=== PATIENT | male | born 1985 | race Caucasian/White ===

== ENCOUNTER 2024-01-24 14:21 | Emergency (ER) | payer OTHER, MEDICAID ==
[~2024-01-24] VITALS: Ht 177.8 cm; Wt 67.2 kg
[2024-01-24 14:26] VITALS: BP 138/70; PULSE 90; RESP 16; TEMP 98.6; O2SAT 99
[2024-01-24 15:19] LABS: BILIRUBIN,URINE NEGATIVE (Neg); CLARITY,URINE CLEAR (Clear); COLOR,URINE YELLOW (Yellow); GLUCOSE, URINE NEGATIVE (Neg); KETONES,URINE NEGATIVE (Neg); LEUKOCYTE ESTERASE ,URINE NEGATIVE (Neg); NITRITES, URINE NEGATIVE (Neg); OCCULT BLOOD,URINE NEGATIVE (Neg); PROTEIN,URINE NEGATIVE (Neg); UROBILINOGEN,URINE 0.2 E.U/dL (0.2-1.0)
[2024-01-24 15:21] LABS: UA COLLECTION TYPE CLN CATCH MIDSTREAM
[2024-01-28 21:12] LABS: CHLAMYDIA TRACHOMATIS, NAA Negative (Negative)
== END 2024-01-24 17:05 | disposition home or self-care (01) ==
LOC: ER 14:22
DX: I86.1 Scrotal varices (principal)
CPT/HCPCS: 36415; 76870; 81003; 87491; 93976; 99284